=== PATIENT | male | born 2000 | race Caucasian/White ===

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

== ENCOUNTER 2021-09-10 15:27 | Observation (INO) | payer BC ==
[2021-09-10 16:33] LABS: #Eosinphils 0.1 thou/uL (0.0-0.7); #Lymphocytes 2.9 thou/uL (1.20-3.40); #Monocytes 0.7 thou/uL (0.11-0.59); #Neutrophils 3.1 thou/uL (1.40-6.50); %Basophils 0.6 % (0.0-1.0); %Eosinophils 1.5 % (0.0-10.0); %Lymphocytes 42.7 % (21.0-51.0); %Monocytes 10.3 % (0.0-10.0); %Neutrophils 44.9 % (42.0-75.0); Mean Corpuscular HGB CONC 33.1 g/dL (32.0-36.0); Mean Corpuscular Hemoglobin 30.5 pg (27.0-31.0); Mean Corpuscular Volume 92.4 fL (78.0-98.0); Mean Platelet Volume 8.7 fL (7.4-10.4); Platelet Count 220 thou/uL (130-400); RBC Distribution Width 12.3 % (11.5-14.5); Red Blood Cell (RBC) Count 5.24 mill/uL (4.70-6.10); White Blood Cell (WBC) Count 6.9 thou/uL (4.8-10.8)
[2021-09-10 16:45] LABS: PTT 31.3 sec (22.9-36.1)
[2021-09-10 16:58] LABS: ALT (SGPT) 8 U/L (8-55); AST (SGOT) 10 U/L (5-34); Albumin 4.7 g/dL (3.5-5.0); Alkaline Phosphatase 92 U/L (40-110); Anion Gap 15 mmol/L (10-20); BUN (Urea Nitrogen) 16 mg/dL (8.9-20.6); Bilirubin, Total 0.9 mg/dL (0.2-1.2); Calc. Creatinine Clearance 0 mL/min (70-130); Calcium 10.2 mg/dL (7.8-10.44); Carbon Dioxide 20 mmol/L (22-29); Chloride 106 mmol/L (98-107); Estimated GFR 96; Globulin 2.8 g/dL (2.4-3.5); Glucose 91 mg/dL (70-105); Potassium 3.6 mmol/L (3.5-5.1); Protein, Total 7.5 g/dL (6.0-8.3); Sodium 137 mmol/L (136-145)
[2021-09-10 17:32] LABS: Bilirubin Negative (Negative); Blood, Urine Negative (Negative); Clarity Extra Turbid (Clear); Glucose, Urine (Dipstick) Normal (Negative); Ketone, Urine Negative (Negative); Leukocyte Negative Leu/uL (Negative); Nitrite Negative (Negative); Protein, Urine (Dipstick) Negative (Neg-Trace); Urobilinogen Normal mg/dL (Less than 2)
[2021-09-10 17:41] LABS: Amphetamine Not Detected (NotDetected); Barbiturates Screen Not Detected (NotDetected); Benzodiazepine Screen Not Detected (NotDetected); Cocaine Metabolite Screen Not Detected (NotDetected); Methadone Not Detected (NotDetected); Methamphetamine Not Detected (NotDetected); Opiate Screen Not Detected (NotDetected); Oxycodone Screen Not Detected (NotDetected); Phencyclidine (PCP) Not Detected (NotDetected); THC/Cannabinoid Screen Not Detected (NotDetected); Tricyclic Screen Not Detected (NotDetected)
[2021-09-10] MEDS ORDERED: Aspirin Chewable 81 MG TAB ONE (17:47)
[2021-09-10] MEDS ORDERED: Ondansetron PF 4 MG/2 ML Vial IVP PRN (18:12)
[2021-09-10] MEDS ORDERED: Acetaminophen 325 MG TAB PO PRN (18:12)
[2021-09-10 20:20] VITALS: BMI 23.8
[2021-09-11 05:24] LABS: #Eosinphils 0.1 thou/uL (0.0-0.7); #Lymphocytes 3.7 thou/uL (1.20-3.40); #Monocytes 0.9 thou/uL (0.11-0.59); #Neutrophils 3.8 thou/uL (1.40-6.50); %Basophils 0.5 % (0.0-1.0); %Eosinophils 1.7 % (0.0-10.0); %Lymphocytes 42.9 % (21.0-51.0); %Monocytes 10.7 % (0.0-10.0); %Neutrophils 44.2 % (42.0-75.0); Hemoglobin 15.5 g/dL (14.0-18.0); Mean Corpuscular HGB CONC 33.5 g/dL (32.0-36.0); Mean Corpuscular Hemoglobin 31.1 pg (27.0-31.0); Mean Corpuscular Volume 92.9 fL (78.0-98.0); Mean Platelet Volume 9.3 fL (7.4-10.4); Platelet Count 204 thou/uL (130-400); RBC Distribution Width 12.3 % (11.5-14.5); Red Blood Cell (RBC) Count 4.98 mill/uL (4.70-6.10); White Blood Cell (WBC) Count 8.5 thou/uL (4.8-10.8)
[2021-09-11 05:30] LABS: Anion Gap 13 mmol/L (10-20); BUN (Urea Nitrogen) 16 mg/dL (8.9-20.6); Calc. Creatinine Clearance 110 mL/min (70-130); Calcium 9.5 mg/dL (7.8-10.44); Carbon Dioxide 24 mmol/L (22-29); Chloride 110 mmol/L (98-107); Estimated GFR 88; Glucose 97 mg/dL (70-105); Potassium 3.9 mmol/L (3.5-5.1); Sodium 143 mmol/L (136-145)
[2021-09-11] MEDS: Enoxaparin Sodium 40 MG/0.4 ML SYRINGE SC SCH (13:11)
[2021-09-12 08:02] VITALS: TEMP 97.9
[2021-09-12] MEDS: Enoxaparin Sodium 40 MG/0.4 ML SYRINGE SC SCH (10:34)
[2021-09-12] MEDS ORDERED: Magnevist 469MG/ML 20 ML VIAL ONE (12:00)
[2021-09-12 12:55] VITALS: BP 131/76
== END 2021-09-12 13:00 | disposition home or self-care (01) ==
LOC: ERS 15:27 → ERHOLD 17:52 → 2SW 23:40
PROVIDERS: ADMIT Internal Medicine; ATTEND Internal Medicine
DX: R53.1 Weakness (principal); R47.89 Other speech disturbances; F17.290 Nicotine dependence, other tobacco product, uncomplicated; R05.3 Chronic cough; I08.8 Other rheumatic multiple valve diseases; Z79.899 Other long term (current) drug therapy; Z20.822 Contact with and (suspected) exposure to COVID-19
CPT/HCPCS: 36415; 70450; 70553; 80048; 80053; 80306; 81003; 84484; 85025; 85610; 85730; 93005; 93306; 93880; 95712; 95819; 95957; A9579; G0378; U0003; U0005

== ENCOUNTER 2023-08-16 23:07 | Observation (INO) | payer BC ==
[~2023-08-16 23:07] MED LIST changes: -ISOVUE-370 76%-LOCM 1 ML ONE; +Iopamidol-370 76% 500 ML MDV (1 ML CHARGE) ONE
[2023-08-16 23:44] LABS: #Basophils 0.04 10x3/uL (0.0-0.2); %Basophils 0.4 % (0.0-1.0); %Eosinophils 0.9 % (0.0-10.0); %Lymphocytes 27.3 % (21.0-51.0); %Monocytes 9.4 % (0.0-10.0); %Neutrophils 61.7 % (42.0-75.0); Hematocrit 44.9 % (42.0-52.0); Hemoglobin 15.9 g/dL (14.0-18.0); Mean Corpuscular HGB CONC 35.4 g/dL (32.0-36.0); Mean Corpuscular Hemoglobin 30.6 pg (27.0-31.0); Mean Corpuscular Volume 86.3 fL (78.0-98.0); Mean Platelet Volume 11.2 fL (7.4-10.4); Platelet Count 245 10x3/uL (130-400); RBC Distribution Width 13.4 % (11.5-14.5)
[2023-08-16 23:57] LABS: Alcohol Less than 10.0 mg/dL (Less than 10); Prothrombin Time 13.6 sec (12.0-14.7)
[2023-08-16 23:58] LABS: PTT 29.1 sec (22.9-36.1)
[2023-08-17] LABS: ALT (SGPT) 111 U/L (8-55); AST (SGOT) 29 U/L (5-34); Alkaline Phosphatase 92 U/L (40-110); Anion Gap 18 mmol/L (10-20); BUN (Urea Nitrogen) 9 mg/dL (8.9-20.6); Bilirubin, Total 0.8 mg/dL (0.2-1.2); Calc. Creatinine Clearance 0 mL/min (70-130); Calcium 9.4 mg/dL (7.8-10.44); Carbon Dioxide 20 mmol/L (22-29); Chloride 102 mmol/L (98-107); Estimated GFR 126; Glucose 235 mg/dL (70-105); Lipase 33 U/L (8-78); Magnesium 2.1 mg/dL (1.6-2.6); Potassium 3.8 mmol/L (3.5-5.1); Sodium 136 mmol/L (136-145)
[2023-08-17 00:01] LABS: Acetaminophen Less than 10 mcg/mL (10.0-30.0); Alcohol 25.1 mg/dL (Less than 10); Salicylate Less than 8.0 mg/dL (15.0-30.0)
[2023-08-17 00:03] LABS: Troponin I Less than 0.010 ng/mL (< 0.028)
[2023-08-17 00:20] LABS: Bacteria/HPF None Seen HPF (None Seen); Bilirubin Negative (Negative); Blood, Urine Negative (Negative); CAUTI Indications for Culture Alt mental st,lethar; Clarity Clear (Clear); Glucose, Urine (Dipstick) Normal (Negative); Ketone, Urine Negative (Negative); Leukocyte Negative Leu/uL (Negative); Nitrite Negative (Negative); Protein, Urine (Dipstick) Negative (Neg-Trace); RBC/HPF 0-3 HPF (0-3); Specific Gravity, Urine 1.021 (1.002-1.036); Squamous Epithelial None Seen HPF (0-3); Urobilinogen Normal mg/dL (Less than 2); WBC/HPF 0-3 HPF (0-3)
[2023-08-17 00:24] LABS: Urine Culture Reflex No No
[2023-08-17 00:28] LABS: Amphetamine Detected (NotDetected); Barbiturates Screen Not Detected (NotDetected); Benzodiazepine Screen Not Detected (NotDetected); Cocaine Metabolite Screen Not Detected (NotDetected); Methadone Not Detected (NotDetected); Methamphetamine Not Detected (NotDetected); Opiate Screen Not Detected (NotDetected); Oxycodone Screen Not Detected (NotDetected); Phencyclidine (PCP) Not Detected (NotDetected); THC/Cannabinoid Screen Not Detected (NotDetected); Tricyclic Screen Not Detected (NotDetected)
[2023-08-17] MEDS ORDERED: Aspirin Chewable 81 MG TAB ONE ×2 (02:06→08:25)
[2023-08-17] MEDS ORDERED: Ondansetron PF 4 MG/2 ML Vial IVP PRN (02:19)
[2023-08-17] MEDS ORDERED: Acetaminophen 650 MG Suppository PR PRN (02:19)
[2023-08-17] MEDS ORDERED: Ondansetron ODT 4 MG TAB PO PRN (02:19)
[2023-08-17] MEDS ORDERED: hydrALAZINE 20 MG/ML VIAL SLOW IVP PRN (02:19)
[2023-08-17 02:34] LABS: Lactic Acid 0.7 mmol/L (0.5-2.2)
[2023-08-17] MEDS ORDERED: Acetaminophen 325 MG TAB PO PRN (03:12)
[2023-08-17 03:14] VITALS: BMI 24.5
[2023-08-17] MEDS ORDERED: Acetaminophen 325 MG TAB PO SCH (06:00)
[2023-08-17 06:47] LABS: #Basophils 0.03 10x3/uL (0.0-0.2); %Basophils 0.3 % (0.0-1.0); %Eosinophils 1.4 % (0.0-10.0); %Lymphocytes 38.1 % (21.0-51.0); %Monocytes 10.5 % (0.0-10.0); %Neutrophils 49.4 % (42.0-75.0); Hematocrit 44.8 % (42.0-52.0); Hemoglobin 15.3 g/dL (14.0-18.0); Mean Corpuscular HGB CONC 34.2 g/dL (32.0-36.0); Mean Corpuscular Hemoglobin 30.7 pg (27.0-31.0); Mean Corpuscular Volume 89.8 fL (78.0-98.0); Mean Platelet Volume 11.4 fL (7.4-10.4); Platelet Count 214 10x3/uL (130-400); RBC Distribution Width 13.6 % (11.5-14.5); Red Blood Cell (RBC) Count 4.99 mill/uL (4.70-6.10)
[2023-08-17 07:02] LABS: Anion Gap 14 mmol/L (10-20); BUN (Urea Nitrogen) 16 mg/dL (8.9-20.6); Calc. Creatinine Clearance 129 mL/min (70-130); Calcium 8.9 mg/dL (7.8-10.44); Carbon Dioxide 20 mmol/L (22-29); Cardiac Risk 3.2 (Less than 4.5); Chloride 111 mmol/L (98-107); Cholesterol 155 mg/dl (< 200 Desired); Estimated GFR 108; Glucose 100 mg/dL (70-105); HDL Cholesterol 48 mg/dL (>60 Neg Risk); LDL Cholesterol, Calculated 79 mg/dL; Potassium 3.3 mmol/L (3.5-5.1); Sodium 142 mmol/L (136-145); Triglycerides 139 mg/dL (Less than 150)
[2023-08-17] MEDS: Aspirin 81 mg Enteric Coated Tablet PO SCH (08:27)
[2023-08-17] MEDS ORDERED: Lorazepam 1 MG TAB PO PRN ×2 (13:37→14:00)
[2023-08-17] MEDS ORDERED: Lorazepam 2 MG/ML VIAL IM PRN (13:37)
[2023-08-17] MEDS ORDERED: Electrolyte Replacement Protocol 1 EACH FS SCH (13:45)
[2023-08-17] MEDS: Potassium Chloride 20 MEQ TAB PO SCH (15:17)
[2023-08-17] MEDS: Lorazepam 1 MG TAB PO SCH (15:17)
[2023-08-17] MEDS: Thiamine HCl 200 MG/2 ML VIAL SLOW IVP SCH (15:17)
[2023-08-17 18:55] LABS: Magnesium 2.2 mg/dL (1.6-2.6)
[2023-08-17] MEDS: Enoxaparin 80 MG (0.8 mL) SYRINGE SC SCH (20:03)
[2023-08-17] MEDS: Rosuvastatin 20 MG TAB PO SCH (20:03)
[2023-08-18 04:15] LABS: #Basophils 0.04 10x3/uL (0.0-0.2); %Basophils 0.6 % (0.0-1.0); %Eosinophils 2.2 % (0.0-10.0); %Lymphocytes 37.2 % (21.0-51.0); %Monocytes 11.5 % (0.0-10.0); %Neutrophils 48.4 % (42.0-75.0); Hematocrit 45.2 % (42.0-52.0); Hemoglobin 15.8 g/dL (14.0-18.0); Mean Corpuscular Hemoglobin 30.2 pg (27.0-31.0); Mean Corpuscular Volume 86.3 fL (78.0-98.0); Mean Platelet Volume 11.2 fL (7.4-10.4); Platelet Count 195 10x3/uL (130-400); RBC Distribution Width 13.3 % (11.5-14.5); Red Blood Cell (RBC) Count 5.24 mill/uL (4.70-6.10)
[2023-08-18 04:35] LABS: Anion Gap 12 mmol/L (10-20); BUN (Urea Nitrogen) 14 mg/dL (8.9-20.6); Calc. Creatinine Clearance 154 mL/min (70-130); Calcium 9.5 mg/dL (7.8-10.44); Carbon Dioxide 21 mmol/L (22-29); Chloride 110 mmol/L (98-107); Estimated GFR 126; Glucose 102 mg/dL (70-105); Magnesium 2.1 mg/dL (1.6-2.6); Potassium 3.8 mmol/L (3.5-5.1); Sodium 139 mmol/L (136-145)
[2023-08-18] MEDS: Multivit, Therapeutic 1 TAB PO SCH (10:08)
[2023-08-18] MEDS: Folic Acid 1 MG TAB PO SCH (10:09)
[2023-08-18] MEDS ORDERED: Lorazepam 1 MG TAB PO PRN (14:00)
[2023-08-18 16:36] VITALS: BP 124/79; TEMP 98.7
[2023-08-19] MEDS ORDERED: Lorazepam 1 MG TAB PO PRN (14:00)
[2023-08-19] MEDS ORDERED: Lorazepam 0.5 MG TAB PO SCH (14:00)
[2023-08-20] MEDS ORDERED: Lorazepam 0.5 MG TAB PO PRN (14:00)
[2023-08-20] MEDS ORDERED: Thiamine 100 MG TAB PO SCH (14:00)
[2023-08-21 20:08] LABS: QuantiFERON-TB Gold Plus Negative (Negative)
== END 2023-08-18 16:00 | disposition home or self-care (01) ==
LOC: ERS 23:07 → ERHOLD 08-17 01:42 → 2SE 08-17 16:24
PROVIDERS: ADMIT Student in an Organized Health Care Education/Training Program; ATTEND Family Medicine
PROC: B246ZZZ Ultrasonography of Right and Left Heart (ICD-10-PCS; principal; 2023-08-18)
DX: I48.91 Unspecified atrial fibrillation (principal); R29.810 Facial weakness; I08.1 Rheumatic disorders of both mitral and tricuspid valves; R04.2 Hemoptysis; E87.6 Hypokalemia; F90.9 Attention-deficit hyperactivity disorder, unspecified type; F10.99 Alcohol use, unspecified with unspecified alcohol-induced disorder; F17.290 Nicotine dependence, other tobacco product, uncomplicated
CPT/HCPCS: 36415; 36416; 70450; 70496; 70498; 70551; 71045; 71260; 80048; 80053; 80061; 80306; 80307; 81001; 83036; 83605; 83690; 83735; 84443; 84484; 85025; 85610; 85730; 86480; 93005; 93010; 93306; 94760; 96372; 96374; G0378; J1650; J3411; Q9967

== ENCOUNTER 2024-02-15 12:35 | Emergency (ER) | payer BC, OTHER | END 2024-02-15 13:02 | disposition home or self-care (01) | LOC: ERS 12:35 | DX: H10.9 Unspecified conjunctivitis (principal); F17.290 Nicotine dependence, other tobacco product, uncomplicated; F17.210 Nicotine dependence, cigarettes, uncomplicated | CPT/HCPCS: 99283 ==

== ENCOUNTER 2024-12-24 19:17 | Emergency (ER) | payer OTHER, BC ==
[2024-12-24] MEDS ORDERED: Ketorolac Tromethamine 30 MG (1 mL) VIAL ONE (19:41)
[2024-12-24] MEDS ORDERED: Acetaminophen 500 MG TAB ONE (19:41)
[2024-12-24] MEDS ORDERED: Ondansetron PF 4 MG/2 ML Vial ONE (19:41)
[2024-12-24 20:02] LABS: #Basophils 0.03 10x3/uL (0.0-0.2); #Eosinophils 0.03 10x3/uL (0.0-0.7); #Monocytes 0.76 10x3/uL (0.11-0.59); #Neutrophils 5.82 10x3/uL (1.40-6.50); %Basophils 0.4 % (0.0-1.0); %Eosinophils 0.4 % (0.0-10.0); %Lymphocytes 10.4 % (21.0-51.0); %Monocytes 10.2 % (0.0-10.0); %Neutrophils 78.5 % (42.0-75.0); Hematocrit 47.9 % (42.0-52.0); Hemoglobin 16.3 g/dL (14.0-18.0); Mean Corpuscular Hemoglobin 29.3 pg (27.0-31.0); Mean Corpuscular Volume 86.2 fL (78.0-98.0); Platelet Count 202 10x3/uL (130-400); Red Blood Cell (RBC) Count 5.56 mill/uL (4.70-6.10); White Blood Cell (WBC) Count 7.42 10x3/uL (4.8-10.8)
[2024-12-24 20:23] LABS: ALT (SGPT) 14 U/L (Less than 45); AST (SGOT) 23 U/L (11-34); Albumin 4.6 g/dL (3.1-4.5); Alkaline Phosphatase 102 U/L (40-110); Anion Gap 14 mmol/L (10-20); BUN (Urea Nitrogen) 16 mg/dL (8.9-20.6); Bilirubin, Total 0.8 mg/dL (0.3-1.2); Calc. Creatinine Clearance 0 mL/min (70-130); Calcium 9.4 mg/dL (7.8-10.44); Carbon Dioxide 23 mmol/L (22-29); Chloride 105 mmol/L (98-107); Globulin 2.9 g/dL (2.4-3.5); Glucose 98 mg/dL (70-105); Lipase 31 U/L (8-78); Potassium 3.5 mmol/L (3.5-5.1); Sodium 138 mmol/L (136-145)
== END 2024-12-24 21:07 ==
LOC: ERS 19:17
DX: R05.9 Cough, unspecified (principal); R11.0 Nausea; I48.91 Unspecified atrial fibrillation; F17.210 Nicotine dependence, cigarettes, uncomplicated; F17.290 Nicotine dependence, other tobacco product, uncomplicated
CPT/HCPCS: 71045; 80053; 83605; 83690; 85025; 87040; 87081; 87428; 87430; 93005; 96374; 96375; J1885; J2405